=== PATIENT | female | born 1990 | race Caucasian/White ===

== ENCOUNTER → 2020-02-01 | Outpatient (CLI) | payer OTHER | END | disposition home or self-care (01) | LOC: EMS 10:43 | DX: Z20.828 Contact with and (suspected) exposure to other viral communicable diseases (principal) | CPT/HCPCS: U0003-CS ==

== ENCOUNTER 2022-10-07 19:02 | Emergency (ER) | payer MEDICAID, OTHER ==
[~2022-10-07] VITALS: Ht 152.4 cm; Wt 59.1 kg
[2022-10-07 19:03] VITALS: BP 137/98
[2022-10-07] MEDS ORDERED: TraMADol HCL 50 MG TABLET PO ONE (19:30)
[2022-10-07] MEDS ORDERED: IBUP-1492 PO (19:31)
[2022-10-07] MEDS ORDERED: CYCL-448 PO (19:31)
== END 2022-10-07 19:46 | disposition home or self-care (01) ==
LOC: EMS 19:03
DX: S00.93XA Contusion of unspecified part of head, initial encounter (principal); F12.90 Cannabis use, unspecified, uncomplicated; V89.2XXA Person injured in unspecified motor-vehicle accident, traffic, initial encounter; Y93.89 Activity, other specified; Y92.89 Other specified places as the place of occurrence of the external cause; Y99.8 Other external cause status
CPT/HCPCS: 99283